=== PATIENT | female | born 1985 | race Caucasian/White ===

== ENCOUNTER 2023-04-10 12:10 | Emergency (ER) | payer OTHER, SELFPAY ==
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
[2023-04-10 12:36] VITALS: BP 134/79; PULSE 75; RESP 16; TEMP 36.4; O2SAT 99
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
== END 2023-04-10 13:47 | disposition home or self-care (01) ==
PROVIDERS: Emergency Provider Nurse Practitioner Family
DX: S20.212A Contusion of left front wall of thorax, initial encounter (principal); V40.5XXA Car driver injured in collision with pedestrian or animal in traffic accident, initial encounter; E28.2 Polycystic ovarian syndrome
CPT/HCPCS: 71101; 99213; G0463